=== PATIENT | female | born 1975 | race African-American/Black ===

== ENCOUNTER 2021-09-28 00:57 | Emergency (ER) | payer SELFPAY ==
[~2021-09-28] VITALS: Ht 175.3 cm; Wt 59.0 kg
[2021-09-28] MEDS ORDERED: ACETAMINOPHEN 325MG TABLET PO ONE (02:00)
[2021-09-28] MEDS ORDERED: IBUPROFEN 400MG TABLET PO ONE (02:00)
[2021-09-28] MEDS ORDERED: ONDANSETRON 4MG ODT PO ONE (02:00)
[2021-09-28 03:30] VITALS: BP 105/66
== END 2021-09-28 05:25 | disposition home or self-care (01) ==
LOC: ER 00:57
DX: R51.9 Headache, unspecified (principal); Z72.89 Other problems related to lifestyle; F12.10 Cannabis abuse, uncomplicated
CPT/HCPCS: 99284; Q0162